=== PATIENT | male | born 1975 | race Caucasian/White ===

== ENCOUNTER → 2017-05-01 | Outpatient (CLI) | payer OTHER | LOC: RAD 06:58 | DX: M25.561 Pain in right knee (principal); M25.562 Pain in left knee; R22.41 Localized swelling, mass and lump, right lower limb; R22.42 Localized swelling, mass and lump, left lower limb ==

== ENCOUNTER → 2017-11-06 | Outpatient (CLI) | payer OTHER | LOC: PT 07:47 → EDSTATUS 14:49 | DX: Z01.818 Encounter for other preprocedural examination (principal); S83.511A Sprain of anterior cruciate ligament of right knee, initial encounter ==

== ENCOUNTER → 2017-11-16 | Outpatient (CLI) | payer OTHER | LOC: RAD 08:51 | DX: S80.11XA Contusion of right lower leg, initial encounter (principal) ==

== ENCOUNTER 2018-02-09 10:00 | Outpatient (RCR) | payer OTHER | END 2018-02-12 | disposition home or self-care (01) | LOC: PT | DX: Z47.89 Encounter for other orthopedic aftercare (principal) ==

== ENCOUNTER 2018-02-21 13:00 | Outpatient (RCR) | payer OTHER | END 2018-02-21 13:30 | disposition home or self-care (01) | LOC: PT 13:00 | DX: S83.511D Sprain of anterior cruciate ligament of right knee, subsequent encounter (principal) ==

== ENCOUNTER 2019-07-31 08:25 | Outpatient (RCR) | payer OTHER | END 2019-10-29 | disposition still patient (30) | LOC: PT | DX: M22.2X1 Patellofemoral disorders, right knee (principal); Z98.890 Other specified postprocedural states ==

== ENCOUNTER → 2021-07-06 | Outpatient (CLI) | payer OTHER ==
[2021-07-06 09:01] LABS: BASO # 0.01 K/mm3 (0.02-0.10); EOS # 0.07 K/mm3 (0.04-0.40); EOS % 1.8 % (0.0-4.0); HEMATOCRIT 43.3 % (42.0-52.0); HEMOGLOBIN 14.7 g/dL (13.5-18.0); MEAN CELL VOLUME 100 fl (78-100); MEAN CORPUSCULAR HEMOGLOBIN 34 pg (27-31); MEAN CORPUSCULAR HGB CONC 34 g/dL (33-37); MEAN PLATELET VOLUME 9.2 fl (7.4-10.4); MONO # 0.39 K/mm3 (0.20-0.80); NEU # 2.43 K/mm3 (1.40-6.50); PLATELET COUNT 236 K/mm3 (130-400); RED BLOOD COUNT 4.32 M/mm3 (4.20-5.60); RED CELL DISTRIBUTION WIDTH 12.8 % (11.5-14.5); WHITE BLOOD COUNT 3.9 K/mm3 (4.8-10.8)
[2021-07-06 09:06] LABS: ALBUMIN 4.3 g/dL (3.5-5.0); POTASSIUM 3.8 mmol/L (3.5-5.1)
[2021-07-06 09:07] LABS: CALCIUM 9.4 mg/dL (8.3-10.5)
[2021-07-06 09:09] LABS: TOTAL PROTEIN 7.8 g/dL (6.4-8.3)
[2021-07-06 09:11] LABS: TOTAL BILIRUBIN 0.7 mg/dL (0.2-1.2)
[2021-07-06 11:20] LABS: ERYTHROCYTE SEDIMENTATION RATE 7 mm/hr (0-15)
== END ==
LOC: LAB 08:01
PROVIDERS: Internal Medicine
DX: Z00.00 Encounter for general adult medical examination without abnormal findings (principal); Z12.5 Encounter for screening for malignant neoplasm of prostate